=== PATIENT | female | born 1970 | race Hispanic/Latino ===

== ENCOUNTER 2020-08-25 05:30 | Observation (INO) | payer BC ==
[2020-08-24 11:22] LABS: BASOPHILS % (AUTO) 0.3 % (0.0-5.0); EOSINOPHILS % (AUTO) 2.5 % (0.0-8.0); HEMATOCRIT 39.4 % (36-48); LYMPHOCYTES % (AUTO) 18.2 % (21.0-51.0); MEAN CORPUSCULAR HEMOGLOBIN 25.8 pg (27.0-33.0); MEAN CORPUSCULAR HGB CONC 31.5 g/dL (32.0-36.0); MEAN CORPUSCULAR VOLUME 81.9 fL (79-99); NEUTROPHILS % (AUTO) 74.7 % (40.0-77.0); PLATELET COUNT (AUTO) 314 K/uL (130-400); RED BLOOD CELL COUNT(AUTO) 4.81 MIL/uL (4.00-5.50); RED CELL DISTRIBUTION WIDTH 14.6 % (11.0-15.5); WHITE BLOOD COUNT (AUTO) 9.3 K/uL (4.8-10.8)
[2020-08-24 17:10] VITALS: BP 174/78
[2020-08-25] VITALS (22 sets, daily range): BP systolic 107–165; BP diastolic 45–77
[~2020-08-25] VITALS: Ht 157.5 cm; Wt 98.9 kg
[~2020-08-25 05:30] MED LIST: CEFAZOLIN SODIUM 1 GM VIAL IVP SCH; MEPERIDINE-PF 75 MG/ML SYG IM PRN; ONDANSETRON 4MG INJ IVP PRN; PROMETHAZINE HCL 25 MG/ML 1ML AMPULE IM PRN
[2020-08-25] MEDS ORDERED: LACTATED RINGERS 1000ML 1,000 ML IV ONE (05:50)
[2020-08-25] MEDS ORDERED: CEFAZOLIN SODIUM 1 GM VIAL ONE (06:17)
[2020-08-25] MEDS: DOCUSATE SODIUM 100 MG CAP PO SCH ×2 (09:00→20:25)
[2020-08-25] MEDS: SIMETHICONE 80 MG TAB.CHEW CHEW SCH ×4 (09:00→20:25)
[2020-08-25] MEDS ORDERED: NEOSTIGMINE 5MG/5ML SYR IV ONE (09:16)
[2020-08-25] MEDS ORDERED: ONDANSETRON 4MG INJ ONE (09:16)
[2020-08-25] MEDS ORDERED: MIDAZOLAM HCL 1 MG/ML 2ML VIAL ONE (09:16)
[2020-08-25] MEDS ORDERED: SUCCINYLCHOLINE 200MG/10ML SYR ONE (09:16)
[2020-08-25] MEDS ORDERED: LIDOCAINE PF 100MG/5ML (2%) SYRINGE 5ML ONE (09:16)
[2020-08-25] MEDS ORDERED: ROCURONIUM 10MG/1ML SYR 10 MG/ML ML ONE ×2 (09:16→10:35)
[2020-08-25] MEDS ORDERED: GLYCOPYRROLATE 1 MG/5 ML SYRINGE ONE ×2 (09:16→12:31)
[2020-08-25] MEDS ORDERED: PROPOFOL 10 MG/ML 20ML VIAL IV ONE (09:16)
[2020-08-25] MEDS ORDERED: DEXAMETHASONE SOD PHOSPHATE 10MG/ML 1ML VIAL ONE (09:16)
[2020-08-25] MEDS ORDERED: MEPERIDINE-PF 25 MG/ML SYG ONE ×2 (09:17→11:40)
[2020-08-25] MEDS ORDERED: FENTANYL CITRATE PF 50 MCG/1 ML 5ML AMP IV ONE (09:18)
[2020-08-25] MEDS ORDERED: ATROPINE 1MG SYG IVP ONE (12:30)
[2020-08-25] MEDS ORDERED: DEXTROSE 5 %-0.45 % NACL 1,000 ML IV PRN (13:15)
[2020-08-25] MEDS ORDERED: IBUPROFEN 600 MG TABLET PO PRN (13:15)
[2020-08-25] MEDS ORDERED: SIMETHICONE 80 MG TAB.CHEW PO PRN (13:15)
[2020-08-25] MEDS ORDERED: MEPERIDINE-PF 75 MG/ML SYG IM PRN (13:15)
[2020-08-25] MEDS ORDERED: BISACODYL 10 MG SUPP.RECT RC PRN ×2 (13:15→16:15)
[2020-08-25] MEDS ORDERED: DOCUSATE SODIUM 100 MG CAP PO PRN (13:15)
[2020-08-25] MEDS ORDERED: ONDANSETRON 4MG INJ IVP PRN (13:15)
[2020-08-25] MEDS ORDERED: PROMETHAZINE HCL 25 MG/ML 1ML AMPULE IM PRN ×2 (13:15)
[2020-08-25] MEDS ORDERED: HYDROCODONE/ACETAMINOPHEN 5/325 MG TAB PO PRN (16:15)
[2020-08-25] MEDS ORDERED: APAP-CODEINE 300/30MG TAB PO PRN (16:15)
[2020-08-25] MEDS ORDERED: IBUPROFEN 800 MG TAB PO PRN (16:15)
[2020-08-25] MEDS: APAP-CODEINE 300/30MG TAB PO PRN (20:26)
[2020-08-25] MEDS: DEXTROSE 5 %-0.45 % NACL 1,000 ML IV SCH (22:25)
[2020-08-26 03:19] VITALS: BP 132/59
[2020-08-26] MEDS: APAP-CODEINE 300/30MG TAB PO PRN (05:14)
[2020-08-26 05:44] LABS: HEMATOCRIT 33.5 % (36-48); MEAN CORPUSCULAR HEMOGLOBIN 26.6 pg (27.0-33.0); MEAN CORPUSCULAR HGB CONC 32.2 g/dL (32.0-36.0); MEAN CORPUSCULAR VOLUME 82.5 fL (79-99); RED BLOOD CELL COUNT(AUTO) 4.06 MIL/uL (4.00-5.50); RED CELL DISTRIBUTION WIDTH 15.1 % (11.0-15.5); WHITE BLOOD COUNT (AUTO) 17.9 K/uL (4.8-10.8)
[2020-08-26] MEDS: DEXTROSE 5 %-0.45 % NACL 1,000 ML IV SCH (06:21)
[2020-08-26 07:30] VITALS: BP 143/70
[2020-08-26] MEDS: DOCUSATE SODIUM 100 MG CAP PO SCH (07:46)
[2020-08-26] MEDS: SIMETHICONE 80 MG TAB.CHEW CHEW SCH (07:46)
[2020-08-26 11:04] VITALS: BP 145/68
== END 2020-08-26 13:10 | disposition home or self-care (01) ==
LOC: DAH 05:30 → WSH 05:31
PROVIDERS: ADMIT Obstetrics & Gynecology; ATTEND Obstetrics & Gynecology
DX: D25.9 Leiomyoma of uterus, unspecified (principal); Z20.822 Contact with and (suspected) exposure to COVID-19; N39.3 Stress incontinence (female) (male); K46.9 Unspecified abdominal hernia without obstruction or gangrene
CPT/HCPCS: 36415 ×2; 57268; 84703; 85025; 85027; 86850; 86900; 86901; 87635; 96360; 96361 ×2; 96372; A4215 ×2; A4221; A4222; A4223; A4344; A4351; A4495; A4600; A4649 ×3; A6260; C1769 ×2; C1771; C9803; G0378 ×28; J0330; J0690; J1100; J2001; J2175 ×2; J2250; J2405; J2704; J2710; J3010; J3490 ×2; J7030 ×2; J7120; J0461

== ENCOUNTER → 2023-08-04 | Outpatient (CLI) | payer OTHER | END | disposition home or self-care (01) | LOC: RAH 08:15 | PROVIDERS: ATTEND Obstetrics & Gynecology | DX: Z12.31 Encounter for screening mammogram for malignant neoplasm of breast (principal) | CPT/HCPCS: 77067 ==

== ENCOUNTER → 2024-09-16 | Outpatient (CLI) | payer OTHER | END | disposition home or self-care (01) | LOC: RAH 15:44 | PROVIDERS: ATTEND Obstetrics & Gynecology | DX: Z12.31 Encounter for screening mammogram for malignant neoplasm of breast (principal) | CPT/HCPCS: 77067 ==